=== PATIENT | male | born 1975 | race Two or more races ===

== ENCOUNTER 2024-07-05 14:30 | Emergency (ER) | payer MEDICAID, SELFPAY ==
[2024-07-05 14:36] VITALS: BMI 32.9
--- NOTE | 2024-07-05 14:44 | PD.EDSEIZ ---
ED Seizures RME/HPI General Chief Complaint: Seizure Stated Complaint: SEIZURE Time Seen by Provider: 07/05/24 14:42 Arrival date/time: 07/05/24 14:30 RME / HPI RME / HPI Narrative: 48-year-old male patient with significant history of seizure disorder, taking seizure medication with good compliance but does not know the name was brought in by EMS for evaluation regarding witnessed tonic-clonic seizure. Patient was putting gas on his car, and was noted to have tonic-clonic seizure lasting for unknown time. When the EMS arrived patient was noted to be having postictal confusion. On my initial evaluation patient is alert and oriented x 4, only complaint is mild headache. Denies any chest pain neck pain or other complaints. Patient did not bit his tongue or have urinary incontinence Related Data Allergies Allergy/AdvReac Type Severity Reaction Status Date / Time No Known Allergies Allergy Verified 07/05/24 15:32 Review of Systems Review of Systems Narrative Review of Systems: Review of system reviewed and within normal limits except mentioned in HPI ED Exam Narrative Physical exam: VITAL SIGNS: Reviewed. GENERAL APPEARANCE: Alert and interactive, follows commands, no acute distress, HEAD AND FACE: Non-traumatic. ENT: PERRL, pink conjunctivitis, eyelid no trauma, Mucous membrane moist. NECK: Supple, nontender, no nuchal rigidity. CHEST: No tenderness, no crepitus, no paradoxical movement, no retractions. LUNGS: Clear, well ventilated, symmetric, no rales, no wheezing, no ronchi, no stridor, good breath sounds bilaterally. HEART: Regular rate, regular rhythm, no murmur, no gallops. ABDOMEN: Soft, positive bowel sounds, nondistended, no guarding, nontender, no rebound, no masses, RECTAL: Deferred. GENITAL: Deferred. NEUROLOGICAL: Gross motor function intact sensory function intact, Appropriate for age. MUSCULOSKELETAL: low back nontender, full range of motion. EXTREMITIES: Nontender, full range of motion. SKIN: Color pink, dry, no rash, no lacerations, no abrasions, no contusions. LYMPHATICS: Deferred. Course Quality Measures none Orders Category Date Time Status CBC [CBC] Stat Lab 07/05/24 15:08 Completed CMP [Comprehensive Metabolic Panel] Stat Lab 07/05/24 15:08 Completed UA, C/S IF [Urinalysis, C/S if Indicated] Stat Lab 07/05/24 15:42 Completed levETIRAcetam INJ [Keppra Inj] Med 07/05/24 14:43 Discontinued 1,000 mg IVP X1 ONE Vital Signs Vital signs: Vital Signs Temperature 98.0 F 07/05/24 15:20 Pulse Rate 83 07/05/24 15:20 Respiratory Rate 15 07/05/24 15:20 Blood Pressure 107/76 07/05/24 15:20 Pulse Oximetry (%) 98 07/05/24 15:20 Oxygen Delivery Method Room Air 07/05/24 15:20 Seizure MDM Narrative MDM Narrative:: patient was noted to be having postictal confusion. On my initial evaluation patient is alert and oriented x 4, only complaint is mild headache. Denies any chest pain neck pain or other complaints. Patient did not bit his tongue or have urinary incontinence Patient's workup today came back normal. Patient received loading dose of Keppra in the emergency room. No recurrence of seizure noted in the emergency room Patient appears nontoxic and hemodynamically stable. Patient discharged home and instructed to follow-up with primary care provider in 24 to 48 hours. Instructed to return to the emergency department immediately if worsening of symptoms Patient was advised to follow-up also with neurologist in the morning. Continue taking Keppra. Advised not to drive, climb, swim, operate machinery until cleared by neurologist. Patient data External records reviewed:: None Clinical information provided by:: patient Social determinants that could affect healthcare access:: none Patient has the following chronic illnesses:: Seizure disorder How is presenting disease/condition affected by chronic disease/condition?: no chronic disease Evaluation data The following diagnostics were reviewed and interpreted by me:: lab results Lab and/or radiology exams considered but not ordered:: None Interpretation Summary: CBC CMP urinalysis all came back unremarkable. EKG showed normal sinus rhythm, ventricular rate of 87 bpm, no ST segment elevation depression noted. Medications / Prescriptions Medications or Prescriptions considered but not ordered:: None Medication administrations:: Medication Administration History Discontinued Medications Levetiracetam (Levetiracetam Inj 100 Mg/Ml Vial 5ml) 1,000 mg IVP X1 ONE Stop: 07/05/24 14:44 Last Admin: 07/05/24 15:45 Dose: 1,000 mg Documented By: Keppra IV Consultations Consultation(s) initiated? (list below): No Diagnosis Seizure Differential Diagnosis: focal seizure, generalized seizure and other (Breakthrough seizure) Most likely diagnosis given after review of the tests above:: Breakthrough seizure Admission Indicated Admission indicated?: not indicated Explain why admission is indicated or not indicated:: Stable Admission Request Was there a request for admission?: No Disposition Plan Disposition Plan: Discharge Discharge Attestation Discharge Attestation: The patient and all family members were given an opportunity to ask questions and understood the discharge instructions. Discharge instructions specifically effects, indications for sooner follow up or return to the emergency department, and the expected course of current diagnosis. Patient condition: Stable Discharge Plan Plan Patient Disposition: HOME (Self Care) Disposition Comment: stable Problem List Clinical Impression: Breakthrough seizure Patient/Caregiver Discharge Instructions Discharge Activity: activity as tolerated Education Materials: ED Seizure, Recurrent (Adult) Additional Instructions: Thank you for the opportunity for serving you today. You are stable for discharged . You are advised to: Follow-up with your PCP in 1 to 2 days Return to ED for worsening of symptoms Increase oral fluids Take your seizure medications Print Language: [place] Stand Alone Forms: Berenice Award Info., Patient Portal Info Letter PA/ACCOUNTANT CONTROLLER Supervising Physician ISAC/ALEXANDREA Supervising Physician: MD Jane
[2024-07-05 15:20] VITALS: BP 107/76; PULSE 83; RESP 15; TEMP 36.7; O2SAT 98
[2024-07-05 15:30] LABS: Basophils # (Auto) 0.1 Thou/mm3 (0.0-0.2); Basophils % (Auto) 1 % (0-2.5); Eosinophils # (Auto) 0.3 Thou/mm3 (0.0-0.5); Eosinophils % (Auto) 4 % (0-10); Hematocrit 37.6 % (41.0-53.0); Hemoglobin 13.7 g/dL (13.5-16.0); Immature Granulocytes % (Auto) 1 % (0-0); Immature Granulocytes Auto 0.06 Thou/mm3 (0.00-0.00); Lymphocytes # (Auto) 2.3 Thou/mm3 (1.0-4.8); Lymphocytes % (Auto) 25 % (10-50); Mean Corpuscular HGB Conc 36.4 g/dl (31.0-37.0); Mean Corpuscular Hemoglobin 31.7 pg (25.0-35.0); Mean Corpuscular Volume 87 fL (80-100); Monocytes # (Auto) 0.7 Thou/mm3 (0.0-0.8); Monocytes % (Auto) 7 % (0-12); Neutrophils # (Auto) 5.7 Thou/mm3 (1.8-7.7); Neutrophils % (Auto) 62 % (37-80); Nucleated Red Blood Cell % 0 /100 WBC (0); Platelet Count 179 Thou/mm3 (140-440); RDW Standard Deviation 39.4 fL (35.1-43.9); Red Blood Count 4.32 Miln/mm3 (4.50-5.90); White Blood Count 9.1 Thou/mm3 (3.8-10.6)
[2024-07-05] MEDS: levETIRAcetam INJ 100 MG/ML VIAL 5ML 1000 MG IVP (15:45)
[2024-07-05 15:51] LABS: Alanine Aminotransferase 22 U/L (10-49); Albumin, Serum 4.3 gm/dL (3.5-5.0); Alkaline Phosphatase 63 U/L (46-116); Anion Gap 12 (7-16); Aspartate Amino Transferase 19 U/L (0-34); BUN/Creatinine Ratio 11 Ratio (12-20); Bilirubin,Total 0.3 mg/dL (0.3-1.2); Blood Urea Nitrogen 12 mg/dL (9-23); Calcium 8.7 mg/dL (8.3-10.6); Calcium (Corrected) 8.7 mg/dL (8.5-10.1); Carbon Dioxide 26.1 mMol/L (20.0-31.0); Chloride 105 mMol/L (98-107); Creatinine (Component) 1.1 mg/dL (0.6-1.3); Estimated Creatinine Clearance 74.3 mL/min (>60); Globulin 2.2 gm/dL (2.3-3.5); Glucose 97 mg/dL (74-106); Osmolality,Calculated 284 (275-295); Potassium 3.5 mMol/L (3.4-5.1); Sodium 143 mMol/L (136-145); Total Protein 6.5 gm/dL (5.7-8.2); eGFR > 60 See Note
[2024-07-05 15:59] VITALS: BP 98/68; PULSE 77; RESP 18; TEMP 36.8; O2SAT 98
[2024-07-05 16:01] LABS: Collection Type, Urine Clean Catch; Squamous Epithelial Cell,Urine 0 /hpf (0-5)
[2024-07-05 16:15] LABS: Bilirubin,Urine Negative (Negative); Blood,Urine Negative (Negative); Clarity,Urine Clear (Clear/Hazy); Color,Urine Lt-Yellow (Lt Yel-Yel); Culture Indicated,Urine Not Indicated; Glucose, Urine Negative (Negative); Ketones,Urine Trace (Negative); Leukocyte Esterase,Urine Negative (Negative); Nitrite,Urine Negative (Negative); Protein,Urine 1+ (Neg - Trace); RBC,Urine 10 /hpf (0-3); Specific Gravity,Urine 1.017 (1.001-1.035); Urobilinogen,Urine Negative mg/dL (0.0-1.0); WBC,Urine 3 /hpf (0-5)
[2024-07-05 16:22] LABS: Sperm,Urine Present
[2024-07-05 16:28] VITALS: BP 109/65; PULSE 71; RESP 19; TEMP 36.7; O2SAT 97
== END 2024-07-05 17:52 | disposition home or self-care (01) ==
LOC: SERX 17:47
PROVIDERS: Nurse Practitioner Family; Emergency Provider Emergency Medicine
DX: R56.9 Unspecified convulsions (principal)
CPT/HCPCS: 36415; 80053; 81001; 85025; 96374; 99284; J1953